=== PATIENT | female | born 1980 | race Caucasian/White ===

== ENCOUNTER 2017-08-29 21:30 | Emergency (ER) | payer OTHER ==
[2017-08-29 21:42] VITALS: BP 145/74
--- NOTE | 2017-08-29 22:13 | UC ---
Dizzy HPI HPI Summary: Pt presents with c/o gradual onset dizziness, jaw pain, upper back, neck pain, KOEHLER that is managed with OTC ibuprofen and tylenol. Pt has HX of thyroid cancer , saw Oncologist on and stated she was told "all things looked good". Pt has history of high cholesterol. Pt states lightheadedness is intermittent and is unable to identify what worsens it or what alleviates it. Pt has been seeing chiropractor weekly for cervical neck adjustments for neck and head pain. Pt states she has history of anxiety and with acute attacks has diarrhea, she has had 3-4 episodes per day X 5 days. - History Of Current Complaint Chief Complaint: UCGeneralIllness Stated Complaint: HEAD/JAW PAIN, LIGHTHEADED Time Seen by Provider: 08/29/17 21:40 Hx Obtained From: Patient Hx Last Menstrual Period: 08/23/17 ?: No Onset/Duration: Gradual Onset, Lasting Days, Still Present Timing: Intermittent Episode Lasting Severity Initially: Mild Severity Currently: Mild Pain Intensity: 5 Character: Lightheaded Aggravating Factor(s): Nothing Alleviating Factor(s): Nothing Associated Signs And Symptoms: Positive: Visual Changes - Risk Factors Cardiac Risk Factors: Elevated Lipids CVA Risk Factor: Hyperlipidemia - Allergies/Home Medications Allergies/Adverse Reactions: Allergies Allergy/AdvReac Type Severity Reaction Status Date / Time cephalexin [From Keflex] Allergy Unknown Verified 08/29/17 21:41 Reaction Details erythromycin base Allergy Unknown Verified 08/29/17 21:41 Reaction Details niacin Allergy Unknown Verified 08/29/17 21:41 Reaction Details Penicillins Allergy Unknown Verified 08/29/17 21:41 Reaction Details Sulfa (Sulfonamide Allergy Unknown Verified 08/29/17 21:41 Antibiotics) Reaction Details Home Medications: Home Medications Calcium Carb/D3/Magnesium/Zinc [Bull Mag Zinc + D3 Tablet] 1 each PO DAILY [History Confirmed 08/29/17] Cetirizine* [ZyrTEC 10 MG TAB*] 10 mg PO DAILY 08/29/17 [History Confirmed 08/29] PMH/Surg Hx/FS Hx/Imm Hx Endocrine History: Dyslipidemia Psychological History: Anxiety - Surgical History Surgical History: Yes Surgery Procedure, Year, and Place: Thyroidectomy, 2006, [place]. Tubal Ligation , 05/01/09, [place]. C-Sections, 04/14/06 09/22/08, [place]. tonsilectomy. endometrialoma. Partial neck discetion 01/2017 - Family History Known Family History: Positive: Hypertension, Other - father had rheumatic fever - Social History Occupation: Employed Full-time Lives: With Family Alcohol Use: None Substance Use Type: None Smoking Status (MU): Never Smoked Tobacco Have You Smoked in the Last Year: No - Immunization History Most Recent Influenza Vaccination: no Review of Systems Constitutional: Fatigue Skin: Negative Eyes: Blurred Vision - intermittent, resolved at time of exam ENT: Negative Respiratory: Negative Cardiovascular: Negative Gastrointestinal: Diarrhea Genitourinary: Negative Motor: Negative Neurovascular: Negative Musculoskeletal: Negative Neurological: Headache Psychological: Negative Is Patient Immunocompromised?: No All Other Systems Reviewed And Are Negative: Yes Physical Exam Triage Information Reviewed: Yes Appearance: Well-Appearing Vital Signs: Initial Vital Signs Temp 98.2 F 08/29/17 21:34 Pulse 103 08/29/17 21:34 Resp 16 08/29/17 21:34 BP 145/74 08/29/17 21:34 Pulse Ox 97 08/29/17 21:34 Vital Signs Reviewed: Yes Eye Exam: Normal, Other - PERRLA ENT Exam: Normal Neck exam: Normal Respiratory Exam: Normal Cardiovascular Exam: Normal Musculoskeletal Exam: Normal Musculoskeletal: Positive: Strength Intact, ROM Intact Neurological Exam: Normal Psychological Exam: Normal Skin Exam: Normal Diagnostics - Laboratory Diagnostic Studies Completed/Ordered: GLocose: 115 Dizzy Course/Dx - Course Course Of Treatment: I discussed with the pt her history of anxiety and pt stated that she has been feelin more anxious this week. I also discussed with the pt her history of thyroid cancer instructed her to seek care at the closest ER immediately if symptoms worsen. Pt verbalized understanding and agreed to plan of care. - Differential Dx/Diagnosis Differential Diagnosis/HQI/PQRI: Anxiety, Other - KOEHLER Provider Diagnoses: tension KOEHLER. anxiety. dizzyness Discharge - Sign-Out/Discharge Documenting (check all that apply): Discharge - Discharge Plan Condition: Stable Disposition: HOME Patient Education Materials: Tension Headache (ED), Anxiety (ED), Neck Pain (ED ) Referrals: Domenico Leon DO [Primary Care Provider] - Additional Instructions: Please follow up with your PCP as scheduled. - Billing Disposition and Condition Condition: STABLE Disposition: HOME
== END 2017-08-29 22:42 | disposition home or self-care (01) ==
LOC: UCCORT 21:30
DX: G44.209 Tension-type headache, unspecified, not intractable (principal); F41.9 Anxiety disorder, unspecified; R42 Dizziness and giddiness; E78.5 Hyperlipidemia, unspecified
CPT/HCPCS: 93005; 99211; G0463

== ENCOUNTER 2017-11-05 19:58 | Emergency (ER) | payer OTHER ==
[2017-11-05 20:17] VITALS: BP 124/74
--- NOTE | 2017-11-05 20:49 | UC ---
Abdominal Pain Female HPI - HPI Summary HPI Summary: Onset of left upper quadrant pain yesterday, began as a crampy pain in the early afternoon. Resolved overnight, then recurred after noon today, without nausea. No vomiting, appetite a little down. Hx of acid reflux, less in recent months, now takes omeprazole prn. Hx of enlarged spleen on CT last year, without follow up. 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 MRI brain negative last year, normal labs in August. 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 No urinary sx. No hx of stones. Normal menses 10/30/17, hx tubal ligation. No hx of strains or activity to cause msk pain. Appointment pending with Dr. Leon on Thursday. - History of Current Complaint Chief Complaint: UCAbdominalPain Stated Complaint: ABDOMINAL PAIN Time Seen by Provider: 11/05/17 20:16 Hx Obtained From: Patient Hx Last Menstrual Period: 10/30/17 ?: No Onset/Duration: Gradual Onset, Lasting Days - 2 Severity Initially: Moderate Severity Currently: Moderate Pain Intensity: 4 Location: Discrete At: LUQ Radiates: No Character: Cramping, Dull Aggravating Factor(s): Food Alleviating Factor(s): Nothing Associated Signs and Symptoms: Positive: Negative Allergies/Adverse Reactions: Allergies Allergy/AdvReac Type Severity Reaction Status Date / Time cephalexin [From Keflex] Allergy Unknown Verified 11/05/17 20:17 Reaction Details erythromycin base Allergy Unknown Verified 11/05/17 20:17 Reaction Details niacin Allergy Unknown Verified 11/05/17 20:17 Reaction Details Penicillins Allergy Unknown Verified 11/05/17 20:17 Reaction Details Sulfa (Sulfonamide Allergy Unknown Verified 11/05/17 20:17 Antibiotics) Reaction Details Home Medications: Home Medications Omeprazole CAP* [Prilosec CAP* 20 MG] 20 mg PO DAILY 11/05/17 [History Confirmed 11/05/17] Rosuvastatin Calcium [Crestor] 20 mg PO WEEKLY 11/05/17 [History Confirmed 11/05] PMH/Surg Hx/FS Hx/Imm Hx - Additional Past Medical History Additional PMH: recurrent papillary CA thyroid 2016, treated with lymph node dissection. Endocrine History: Thyroid Disease Cardiovascular History: Other - hypercholesterolemia Other Cardiovascular History: hypercholesterolemia - Surgical History Surgical History: Yes Surgery Procedure, Year, and Place: Thyroidectomy, 2006, [place]. Tubal Ligation , 09/22/08, [place]. C-Sections, 04/14/06 09/22/08, [place]. tonsilectomy. endometrialoma. 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 Cardiovascular: Negative Gastrointestinal: Abdominal Pain Genitourinary: Other - menses one week ago Motor: Negative Neurovascular: Negative Musculoskeletal: Negative Neurological: Negative Psychological: Negative All Other Systems Reviewed And Are Negative: Yes Physical Exam Triage Information Reviewed: Yes Appearance: Pain Distress - mild, Obese Vital Signs: Initial Vital Signs Temp 98.8 F 11/05/17 20:06 Pulse 85 11/05/17 20:06 Resp 14 11/05/17 20:06 BP 124/74 11/05/17 20:06 Pulse Ox 99 11/05/17 20:06 Vital Signs Reviewed: Yes Eyes: Positive: Conjunctiva Clear ENT: Positive: Pharynx normal, TMs normal Neck: Positive: Supple, No Lymphadenopathy, Other: - diffuse swelling anterior neck, no tenderness, no masses. Respiratory: Positive: Lungs clear, Normal breath sounds. Negative: No accessory muscle use, Respiratory distress Cardiovascular: Positive: RRR, No Murmur Abdomen Description: Positive: Nontender, Soft, Splenomegaly - Deanne's space dull, and with left side lying ? tender margin of spleen palpable.. Negative: CVA Tenderness (R), CVA Tenderness (L), Distended, Guarding, Hepatomegaly Bowel Sounds: Positive: Present Musculoskeletal Exam: Normal Neurological: Positive: Alert, Muscle Tone Normal Psychological Exam: Normal Skin Exam: Other - flushed, erythematous skin anterior chest and neck Diagnostics - Laboratory Diagnostic Studies Completed/Ordered: UA with blood Abd Pain Female Course/Dx - Course Course Of Treatment: labs to assess, rest, follow up for assessment with PMD - Differential Dx/Diagnosis Differential Diagnosis: Constipation, Renal Colic, Other - colitis Provider Diagnoses: LUQ pain, possible splenomegaly Discharge - Sign-Out/Discharge Documenting (check all that apply): Discharge/Admit/Transfer - Discharge Plan Condition: Stable Disposition: HOME Patient Education Materials: Abdominal Pain (ED) Referrals: Domenico Leon DO [Primary Care Provider] - Additional Instructions: As discussed, your abdominal pain is in the area of the spleen, and clinically you do not have evidence of an acute abdominal process which might need surgical intervention. It is possible that you have an enlarged spleen. Lab work has been done to check your blood count, liver and kidney function, pancreatic markers. Follow up with your primary care doctor as arranged. As discussed, you likely need follow up imaging, but that can be arranged through your primary care doctor. Eat lightly, and follow up in the ER if you have progressive pain, fever, difficulty with passing urine, or vomiting. - Billing Disposition and Condition Condition: STABLE Disposition: Home
[2017-11-06 11:30] LABS: ABS Basophils 0 10^3/ul (0-0.2); ABS Eosinophils 0.3 10^3/ul (0-0.6); ABS Lymphocytes 1.9 10^3/ul (1.0-4.8); ABS Monocytes 0.6 10^3/ul (0-0.8); ABS Nucleated RBC 0 10^3/ul; Eosinophil % 2.3 % (0-6); Hematocrit 41 % (35-47); Hemoglobin 13.9 g/dl (12.0-16.0); Mean Corpuscular HGB Conc 34 g/dl (31-36); Mean Corpuscular Hemoglobin 29 pg (27-31); Mean Corpuscular Volume 85 fL (80-97); Mean Platelet Volume 9.2 um3 (7.4-10.4); Nucleated Red Blood Cells % 0.1; Platelet Count 240 10^3/ul (150-450); Red Blood Count 4.79 10^6/ul (4.00-5.40); Red Cell Distribution Width 13 % (10.5-15); White Blood Count 12.9 10^3/ul (3.5-10.8)
--- NOTE | 2017-11-07 07:20 | ED ---
Progress - Progress Note Progress Note: The patient has mild elevation of Creatinine, 1.34, and needs to see primary care on Thursday to have this rechecked. Also, her WBC count is 12.9 with elevated neutrophils, non specific test. She complained of abdominal pain. She should go to the ER today if completely feeling all better for further work up. She needs follow up with primary care doctor for reevaluation of her lab results on Thursday. Course/Dx - Course Course Of Treatment: labs to assess, rest, follow up for assessment with PMD Discharge - Sign-Out/Discharge Documenting (check all that apply): Discharge/Admit/Transfer - Discharge Plan Condition: Stable Disposition: HOME Patient Education Materials: Abdominal Pain (ED) Referrals: Domenico Leon DO [Primary Care Provider] - Additional Instructions: As discussed, your abdominal pain is in the area of the spleen, and clinically you do not have evidence of an acute abdominal process which might need surgical intervention. It is possible that you have an enlarged spleen. Lab work has been done to check your blood count, liver and kidney function, pancreatic markers. Follow up with your primary care doctor as arranged. As discussed, you likely need follow up imaging, but that can be arranged through your primary care doctor. Eat lightly, and follow up in the ER if you have progressive pain, fever, difficulty with passing urine, or vomiting. - Billing Disposition and Condition Condition: STABLE Disposition: Home
== END 2017-11-05 21:55 | disposition home or self-care (01) ==
LOC: UCCORT 19:58
DX: R10.12 Left upper quadrant pain (principal); K21.9 Gastro-esophageal reflux disease without esophagitis; E78.5 Hyperlipidemia, unspecified; Z88.1 Allergy status to other antibiotic agents; Z88.0 Allergy status to penicillin; Z88.2 Allergy status to sulfonamides; Z88.8 Allergy status to other drugs, medicaments and biological substances; Z85.850 Personal history of malignant neoplasm of thyroid; E78.00 Pure hypercholesterolemia, unspecified
CPT/HCPCS: 36415; 80053; 81003; 83615; 83690; 85025; 86141; 99211; G0463